=== PATIENT | male | born 1940 | race Caucasian/White ===

== ENCOUNTER → 2017-07-24 | Outpatient (CLI) | payer MEDICARE ==
[2017-07-24 09:47] LABS: CH 28.8; CHCM 31.4; HCT 32.7 % (39.0-53.0); HDW 2.62; HGB 10.3 gm/dL (13.0-17.5); Hypochromasia Slight; MCH 28.9 pg (25.0-35.0); MCHC 31.5 g/dL (31.0-37.0); Mean Platelet Volume 7.3; RBC 3.55 m/uL (4.30-5.90); RDW 14.3 % (11.5-15.5); WBC 7.3 k/uL (3.8-10.6)
[2017-07-24 10:08] LABS: Calcium 9.3 mg/dL (8.4-10.2); Potassium 5.3 mmol/L (3.5-5.1); Total Bilirubin 0.3 mg/dL (0.2-1.3); Total Protein 6.6 g/dL (6.3-8.2)
== END | disposition home or self-care (01) ==
LOC: LABWHC1 09:15
PROVIDERS: ATTEND Internal Medicine Interventional Cardiology
DX: E11.9 Type 2 diabetes mellitus without complications (principal); I10 Essential (primary) hypertension
CPT/HCPCS: 36415; 80053; 80061; 85027